=== PATIENT | female | born 1950 | race African-American/Black ===

== ENCOUNTER 2024-10-06 12:26 | Emergency (ER) | payer MEDICARE, OTHER ==
[~2024-10-06] VITALS: Ht 160 cm; Wt 60.4 kg
--- NOTE | 2024-10-06 13:20 | DVH ---
Procedure: US PELVIC Study Date and Requested Time: 10/06/2024 12:54 PM Study Description: US PELVIC History: vag bleed Comparison: None Technique: Multiple high resolution alonso-scale images obtained of the pelvic structures are obtained for evaluation with color doppler as needed. Findings: The uterus and ovaries are surgically absent. No masses or cysts are visualized. Limited evaluation of the urinary bladder due to inadequate distention with no gross abnormalities no josey. Urinary bladder volume of 62 cc. Impression: The uterus and ovaries are surgically absent. No abnormalities are noted within the pelvis. Limited evaluation of the urinary bladder due to inadequate distention with no gross abnormalities no josey. Urinary bladder volume of 62 cc.
[2024-10-06 13:37] LABS: Urine Bacteria FEW /hpf (None Seen); Urine Blood TRACE /uL (Negative); Urine Clarity Clear (Clear); Urine Color Light-Yellow (Yellow); Urine Protein, UAD 1+ (Negative); Urine Specific Gravity 1.031 (1.001-1.035); Urine Squamous Epithelial Cell FEW /hpf (<5); Urine Urobilinogen Normal (Negative); Urine WBC 1 /HPF (0-5); Urine pH 5.5 (5.0-9.0)
[2024-10-06 13:48] LABS: Basophils # (auto) 0 10 ^3/uL (0-0.2); Basophils % (auto) 0.3 % (0.0-2.0); Eosinophils # (auto) 0.1 10 ^3/uL (0-0.8); Eosinophils % (auto) 0.7 % (0.0-7.0); Monocytes # (auto) 0.3 10 ^3/uL (0-1.3); Neutrophils # (auto) 5.8 10 ^3/uL (1.6-8.6)
[2024-10-06 13:51] LABS: Hematocrit 40.7 % (36.0-46.0); Hemoglobin 13.3 g/dL (12.2-16.2); Lymphocytes # (auto) 1.6 10 ^3/uL (0.4-5.4); Lymphocytes % (auto) 20.2 % (10.0-50.0); Mean Corpuscular Hemoglobin 26.3 pg (28.0-32.0); Mean Corpuscular Hgb Conc. 32.6 g/dL (32.0-36.0); Mean Corpuscular Volume 80.7 fL (80.0-100.0); Monocytes % (auto) 4.3 % (0.0-12.0); Neutrophils % (auto) 74.5 % (37.0-80.0); Nucleated Red Blood Cells % 0.1 %; Platelet Count (auto) 355 10^3/uL (140-450); Red Blood Cells 5.05 10^6/uL (4.0-5.20); Red Cell Distribution Width 15.3 % (11.8-14.3); White Blood Cell 7.7 10^3/uL (4.4-10.8)
[2024-10-06 14:02] LABS: INR 0.97 (0.9-1.15); Partial Thromboplastin Time 25.7 SEC (24.5-34.5); Prothrombin Time 10.3 sec (9.3-11.8)
[2024-10-06 14:06] LABS: Alanine Aminotransferase 19 U/L (7-40); Alkaline Phosphatase 100 U/L (46-116); Anion Gap 6 (5-15); Aspartate Aminotransferase 14 U/L (13-40); BUN/Creatinine Ratio 14.4 (10.0-20.0); Blood Urea Nitrogen 16 mg/dL (9-23); Calcium 9.5 mg/dL (8.7-10.4); Carbon Dioxide 29 mmol/L (20-31); Chloride 105 mmol/L (98-107); Potassium 4.1 mmol/L (3.5-5.1); Sodium 140 mmol/L (136-145); Total Protein 7.2 g/dL (5.7-8.2)
[2024-10-06 14:07] LABS: Bilirubin, Total 0.4 mg/dL (0.2-1.0)
--- NOTE | 2024-10-06 14:10 | ED.PDOC ---
General HPI Comments 73-year-old female presents with a chief complaint of burning with urination and spotting when she wipes. Patient is unsure if she is bleeding from her vaginal or from her urethra. Patient is poor historian. Patient mentions that when she urinates that she experiences a burning sensation. Patient denies any abdomen pain, nausea, vomiting, diarrhea, blood blots, vaginal discharge, or dysuria. No other symptoms or modifying factors present at this time. PMHx: DM, HTN, Arthritis PSHx: Hysterectomy HPI: Poor Historian. REVIEW OF SYSTEMS: CONSTITUTIONAL: Denies acute: fever, diaphoresis, chills, generalized weakness. HEAD: Denies acute: headache, photophobia Eyes: Denies acute: Double vision, vision loss, eye pain, eye discharge. EARS: Denies acute: tinnitus, hearing loss, ear discharge, ear pain, THROAT: Denies acute: sore throat, swelling, difficulty swallowing , pain with swallowing, change in voice. NECK: Denies acute: neck pain, neck swelling, stiff neck. HEART: Denies acute : chest pain, palpitations, LUNGS: Denies acute: SOB, wheezing, cough, hemoptysis ABDOMEN: Denies acute: abdominal pain, Nausea, Vomiting, diarrhea, melena , hematemesis, hematochezia SKIN: Denies acute: rash, redness, lesions, itchiness. EXTREMITIES: Denies acute: calf pain, numbness, tingling, weakness, denies pain in extremity. Denies acute: Low back pain. Neuro: Denies acute: focal neurological deficit, motor or sensory focal neurological deficit, tremors, seizure like activity, confusion, dizziness, change in mental status, loss of bowel or bladder function, cauda equina like symptoms. : Denies acute: flank pain, increase in urinary frequency. PSYCH: Denies acute: hallucination, suicidal ideation, homicidal ideation. FEMALE: Denies acute: abnormal vaginal bleeding, foul odor, unusual discharge. PHYSICAL EXAM: General: no acute distress, awake and alert. Head: normocephalic, atraumatic. Neck: supple, trachea is midline, no swelling. Throat: Normal phonation. Eyes:, no erythema, no purulent discharge, no proptosis, no icterus. Heart: regular rate, regular rhythm, no significant murmur appreciated. Lungs: no apparent respiratory distress, Able to speak in full sentences. No wheezing, no rhonchi, no crackles. No stridors Clear to auscultation bilaterally. Abdomen: non tender to palpation, non distended, soft, no guarding, no rebound, + bowel sounds. Neuro: Awake, Alert, oriented to name, self, situation, follows commands GCS=15. Speech is normal. Skin: no petechia, no purpura, no cyanosis, non-pale, not jaundice. Lower extremities: --no - Pitting edema no deformity, no focal swelling, no calf TTP. Makes eye contact. moves all four extremities. Face: no apparent facial droop. Ambulating in the ED independently. 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 Was a procedure done?: No Differential Diagnosis Kidney stone (Female): N/A Urinary Problem (Female): Other (Hematuria:Ddx includes but not limited to: stones, coagulopathy, bladder/kidney cancer, SLE, infection, pylonephritis, prostatitis, cystitis, urethritis, renal infarct, Goodpasture syndrome, Wegners granulomatosis, Henoch-schnolin purpura, Hemolytic Uremic Syndrome HUS. Rhabdomyolysis. ) X-Ray, Labs, Meds, VS Vital Signs Date Time Temp Pulse Resp B/P (MAP) Pulse Ox O2 Delivery O2 Flow Rate FiO2 10/06/24 18:30 98.0 72 18 173/96 (121) 98 98.0 10/06/24 18:30 72 18 98 Room Air 10/06/24 12:47 97.7 72 16 176/82 (113) 99 97.7 Lab Test 10/06/24 13:24 10/06/24 13:00 Range/Units White Blood Count 7.7 4.4-10.8 10^3/uL Red Blood Count 5.05 4.0-5.20 10^6/uL Hemoglobin 13.3 12.2-16.2 g/dL Hematocrit 40.7 36.0-46.0 % Mean Corpuscular Volume 80.7 80.0-100.0 fL Mean Corpuscular Hemoglobin 26.3 L 28.0-32.0 pg Mean Corpuscular Hemoglobin Concent 32.6 32.0-36.0 g/dL Red Cell Distribution Width 15.3 H 11.8-14.3 % Platelet Count 355 140-450 10^3/uL Mean Platelet Volume 7.2 6.9-10.8 fL Neutrophils (%) (Auto) 74.5 37.0-80.0 % Lymphocytes (%) (Auto) 20.2 10.0-50.0 % Monocytes (%) (Auto) 4.3 0.0-12.0 % Eosinophils (%) (Auto) 0.7 0.0-7.0 % Basophils (%) (Auto) 0.3 0.0-2.0 % Neutrophils # (Auto) 5.8 1.6-8.6 10 ^3/uL Lymphocytes # (Auto) 1.6 0.4-5.4 10 ^3/uL Monocytes # (Auto) 0.3 0-1.3 10 ^3/uL Eosinophils # (Auto) 0.1 0-0.8 10 ^3/uL Basophils # (Auto) 0 0-0.2 10 ^3/uL Nucleated Red Blood Cells 0.1 % Prothrombin Time 10.3 9.3-11.8 sec Prothrombin Time INR 0.97 0.9-1.15 Activated Partial Thromboplast Time 25.7 24.5-34.5 SEC Sodium Level 140 136-145 mmol/L Potassium Level 4.1 3.5-5.1 mmol/L Chloride Level 105 98-107 mmol/L Carbon Dioxide Level 29 20-31 mmol/L Anion Gap 6 5-15 Blood Urea Nitrogen 16 9-23 mg/dL Creatinine 1.11 H 0.550-1.02 mg/dL Glomerular Filtration Rate Calc 52 >90 mL/min BUN/Creatinine Ratio 14.4 10.0-20.0 Serum Glucose 360 H 74-106 mg/dL Lactic Acid Level 0.9 0.4-2.0 mmol/L Calcium Level 9.5 8.7-10.4 mg/dL Total Bilirubin 0.4 0.2-1.0 mg/dL Aspartate Amino Transferase (AST) 14 13-40 U/L Alanine Aminotransferase (ALT) 19 7-40 U/L Alkaline Phosphatase 100 46-116 U/L Total Protein 7.2 5.7-8.2 g/dL Albumin 4.0 3.2-4.8 g/dL Urine Color Light-yellow Yellow Urine Clarity Clear Clear Urine pH 5.5 5.0-9.0 Urine Specific [place] 1.031 1.001-1.035 Urine Protein 1+ H Negative Urine Ketones Negative Negative Urine Blood Trace H Negative /uL Urine Nitrite Negative Negative Urine Bilirubin Negative Negative Urine Urobilinogen Normal Negative mg/dL Urine Leukocyte Esterase Negative Negative /uL Urine RBC 4 0 - 4 /hpf Urine Microscopic WBC 1 0-5 /HPF Urine Squamous Epithelial Cells Few <5 /hpf Urine Bacteria Few H None Seen /hpf Urine Glucose 4+ H Normal mg/dL PATIENT: FANTASMA GUERREROACCT: [id number]: [id number] : 1950 LOC: ER ROOM / BED: / AGE / SEX: 73 / F ADM STATUS: REG ER SERVICE 1249 ORDERING PHYSICIAN: RENETTA DAWN DO PROCEDURE(s): PELUS - PELVIC REASON: vag bleed ORDER NUMBER(s): [id number], ACCESSION NUMBER(s): [id number] Procedure: US PELVIC Study Date and Requested Time: 10/06/2024 12:54 PM Study Description: US PELVIC History: vag bleed Comparison: None Technique: Multiple high resolution alonso-scale images obtained of the pelvic structures are obtained for evaluation with color doppler as needed. Findings: The uterus and ovaries are surgically absent. No masses or cysts are visualized. Limited evaluation of the urinary bladder due to inadequate distention with no gross abnormalities noted. Urinary bladder volume of 62 cc. Impression: The uterus and ovaries are surgically absent. No abnormalities are noted within the pelvis. Limited evaluation of the urinary bladder due to inadequate distention with no gross abnormalities noted. Urinary bladder volume of 62 cc. ATED BY: DEE MILLS DO DICTATED DATE/TIME: 10/06/24 1318 SIGNED BY: DEE MILLS DO SIGNED DATE/TIME: 10/06/241317 PATIENT: FANTASMA GUERRERO ACCT: [id number] UNIT: [id number] : 1950 LOC: ER ROOM / BED: / AGE / SEX: 73 / F ADM STATUS: REG ER SERVICE 1538 ORDERING PHYSICIAN: RENETTA DAWN DO PROCEDURE(s): ABPL - CT AB PEL WO CON-NO ORAL OR IV REASON: hematuria ORDER NUMBER(s): [id number], ACCESSION NUMBER(s): [id number] Procedure: CT CT AB PEL WO CON-NO ORAL OR IV 10/06/2024 03:50 PM Indication: hematuria Comparison Study: None Technique: Axial images were obtained and reformatted in coronal and sagittal planes. All CT scans at this medical facility are performed using dose modulation techniques as appropriate to a performed exam including the following: Automated exposure control was utilized; adjustment of the MA and/or KV according to patient size; and use of iterative reconstruction technique. CT Dose: CTDI volume is 8.15 mGy. Dose-length product is 381.82 mGy*cm FINDINGS: Lower Chest: Unremarkable. Hepatobiliary: Unremarkable. Spleen: Unremarkable. Pancreas: Unremarkable. Adrenal Glands: Unremarkable. tract: The kidneys are normal in size bilaterally without hydronephrosis or nephrolithiasis. The urinary bladder is unremarkable. GI tract: The stomach is grossly normal in appearance. No evidence of small bowel obstruction. There is sigmoid diverticulosis without diverticulitis. Mild fecal retention noted. The appendix is normal. Lymphatics: No mesenteric, retroperitoneal or periportal lymphadenopathy. Vasculature: Aorta is normal in caliber. Scattered calcified plaques are noted. Pelvic Organs: The uterus is surgically absent. No adnexal lesion is identified. Bones/soft tissues: A 9 mm sclerotic focus seen L4 vertebral body that may represent a benign bone island or osteoblastic metastasis. Multilevel degenerative disc disease and posterior facet arthropathy of the lumbar spine noted. Other: None. IMPRESSION: 1. No CT evidence for acute intra-abdominal or intrapelvic process. Specifically, no hydronephrosis or urolithiasis. Consider further evaluation of hematuria CT urogram. 2. Moderate fecal retention.Sigmoid 3. Diverticulosis without diverticulitis. 4. A 9 mm sclerotic focus seen L4 vertebral body that may represent a benign bone island or osteoblastic metastasis. This can further evaluated whole-body bone scan if clinically warranted. ATED BY: PEYTON AGRAWAL MD DICTATED DATE/TIME: 10/06/24 163 SIGNED BY: PEYTON AGRAWAL MD SIGNED DATE/TIME: 10/06/24 1638 Time of 1ST Reevaluation: 14:31 Reevaluation 1ST: Unchanged Patient Education/Counseling: Diagnosis, Treatment Family Education/Counseling: No Family Present Comments Patient presented with the above HPI.---hematuria---workup was initiated. patient was found with the above mentioned diagnosis. the following medications were ordered: please refer to order lists of meds and tests obtained by myself Dr. Dawn. Patient ED course and VS have been stabilized. Patient has been reassessed in the ED and remained in a stable condition. Pertinent incidental findings were discussed with the patient and/or family. Patient/family voices understanding and is agreeable with plan. Patient has been observed in the ED adequate length of time to insure improvement/stability. Escalation of care considered: Consideration of escalation to observation or admission Patient was DISCHARGED home in a stable condition. All the reports of any imaging studies that were ordered by myself were reviewed by myself. Departure 1 Departure Time of Disposition: 15:36 Impression: Primary Impression: UTI (urinary tract infection) Additional Impression: Constipation Disposition: 01 HOME / SELF CARE / HOMELESS Condition: Stable Additional Instructions: Additional discharge instructions: You MUST follow-up with your primary care/family doctor in 1 to 2 days. If you are unable to see your primary care/family doctor, please return to our emergency room for re-assessment and re-evaluation in 1 to 2 days. Return to the emergency room here in our facility or to the nearest ER [facility] if your symptoms change or worsen. CONSULTATIONS: you MUST Follow-up for consultation as soon as possible with: -urology and OB Gyne doctor in 1-2 days. Please call for appointment. You MUST call the consultants office yourself to make an appointment. You may need to arrange that through your insurance and/or your primary/family doctor. If you are unable to see the inbound sales consultant in 1 to 2 days, you must return to our emergency room (or any other ER of your choice) for re-assessment and re- evaluation. Increase fiber intake. Adequate fluid hydration. Below is a copy of your radiological report for follow up: [place] [address] Ph: [phone] DIAGNOSTIC IMAGING Diagnostic Imaging Report : [id number] Signed PATIENT: FANTASMA GUERRERO ACCT: [id number] UNIT: [id number] : 1950 LOC: ER ROOM / BED: / AGE / SEX: 73 / F ADM STATUS: REG ER SERVICE 1249 ORDERING PHYSICIAN: RENETTA DAWN DO PROCEDURE(s): PELUS - PELVIC REASON: vag bleed ORDER NUMBER(s): [id number], ACCESSION NUMBER(s): [id number] Procedure: US PELVIC Study Date and Requested Time: 10/06/2024 12:54 PM Study Description: US PELVIC History: vag bleed Comparison: None Technique: Multiple high resolution alonso-scale images obtained of the pelvic structures are obtained for evaluation with color doppler as needed. Findings: The uterus and ovaries are surgically absent. No masses or cysts are visualized. Limited evaluation of the urinary bladder due to inadequate distention with no gross abnormalities noted. Urinary bladder volume of 62 cc. Impression: The uterus and ovaries are surgically absent. No abnormalities are noted within the pelvis. Limited evaluation of the urinary bladder due to inadequate distention with no gross abnormalities noted. Urinary bladder volume of 62 cc. ATED BY: DEE MILLS DO DICTATED DATE/TIME: 10/06/241317 SIGNED BY: DEE MILLS Allen CONTRERAS SIGNED DATE/TIME: 10/06/241317 CC: [address] [address] Ph: [phone] DIAGNOSTIC IMAGING Diagnostic Imaging Report : [id number] Signed PATIENT: FANTASMA GUERRERO ACCT: [id number] UNIT: [id number] : 1950 LOC: ER ROOM / BED: / AGE / SEX: 73 / F ADM STATUS: REG ER SERVICE 1538 ORDERING PHYSICIAN: RENETTA DAWN DO PROCEDURE(s): ABPL - CT AB PEL WO CON-NO ORAL OR IV REASON: hematuria ORDER NUMBER(s): [id number], ACCESSION NUMBER(s): [id number] Procedure: CT CT AB PEL WO CON-NO ORAL OR IV 10/06/2024 03:50 PM Indication: hematuria Comparison Study: None Technique: Axial images were obtained and reformatted in coronal and sagittal planes. All CT scans at this medical facility are performed using dose modulation techniques as appropriate to a performed exam including the following: Automated exposure control was utilized; adjustment of the MA and/or KV according to patient size; and use of iterative reconstruction technique. CT Dose: CTDI volume is 8.15 mGy. Dose-length product is 381.82 mGy*cm FINDINGS: Lower Chest: Unremarkable. Hepatobiliary: Unremarkable. Spleen: Unremarkable. Pancreas: Unremarkable. Adrenal Glands: Unremarkable. tract: The kidneys are normal in size bilaterally without hydronephrosis or nephrolithiasis. The urinary bladder is unremarkable. GI tract: The stomach is grossly normal in appearance. No evidence of small bowel obstruction. There is sigmoid diverticulosis without diverticulitis. Mild fecal retention noted. The appendix is normal. Lymphatics: No mesenteric, retroperitoneal or periportal lymphadenopathy. Vasculature: Aorta is normal in caliber. Scattered calcified plaques are noted. Pelvic Organs: The uterus is surgically absent. No adnexal lesion is identified. Bones/soft tissues: A 9 mm sclerotic focus seen L4 vertebral body that may represent a benign bone island or osteoblastic metastasis. Multilevel degenerative disc disease and posterior facet arthropathy of the lumbar spine noted. Other: None. IMPRESSION: 1. No CT evidence for acute intra-abdominal or intrapelvic process. Specifically, no hydronephrosis or urolithiasis. Consider further evaluation of hematuria CT urogram. 2. Moderate fecal retention.Sigmoid 3. Diverticulosis without diverticulitis. 4. A 9 mm sclerotic focus seen L4 vertebral body that may represent a benign bone island or osteoblastic metastasis. This can further evaluated whole-body b one scan if clinically warranted. ATED BY: PEYTON AGRAWAL MD DICTATED DATE/TIME: 10/06/24 1638 SIGNED BY: PEYTON AGRAWAL MD SIGNED DATE/TIME: 10/06/24 1638 CC: e-Prescriptions Nitrofurantoin Monohydrate Mac (Macrobid) 100 Mg Cap 100 MG PO BID for 7 Days, #14 TAB Prov: RENETTA DAWN DO 10/06/24 Discharged With: Self Critical Care Note Critical Care Time?: No I personally scribed for RENETTA DAWN DO ([email or web address]) on 10/06/24 at 14:10. Electronically submitted by Mauricio Chris ([email or web address]). I personally scribed for RENETTA DAWN DO ([email or web address]) on 10/06/24 at 14:12. Electronically submitted by Mauricio Chris ([email or web address]). I personally scribed for RENETTA DAWN DO ([email or web address]) on 10/06/24 at 16:53. Electronically submitted by Mauricio Chris ([email or web address]). RENETTA DAWN DO Oct 06, 2024 14:10
[2024-10-06 14:12] LABS: Glucose 360 mg/dL (74-106)
[2024-10-06] MEDS ORDERED: NITR-87 PO (15:38)
--- NOTE | 2024-10-06 16:41 | DVH ---
Procedure: CT CT AB PEL WO CON-NO ORAL OR IV 10/06/2024 03:50 PM Indication: hematuria Comparison Study: None Technique: Axial images were obtained and reformatted in coronal and sagittal planes. All CT scans at this medical facility are performed using dose modulation techniques as appropriate to a performed e xam including the following: Automated exposure control was utilized; adjustment of the MA and/or KV according to patient size; and use of iterative reconstruction technique. CT Dose: CTDI volume is 8.1 5 mGy. Dose-length product is 381.82 mGy*cm FINDINGS: Lower Chest: Unremarkable. Hepatobiliary: Unremarkable. Spleen: Unremarkable. Pancreas: Unremarkable. Adrenal Glands: Unremarkable. tract: The kidneys are normal in size bilaterally without hydronephrosis or nephrolithiasis. The u rinary bladder is unremarkable. GI tract: The stomach is grossly normal in appearance. No evidence of small bowel obstruction. There is sigmoid diverticulosis without diverticulitis. Mild fecal retention noted. The appendix is normal. Lymphatics: No mesenteric, retroperitoneal or periportal lymphadenopathy. Vasculature: Aorta is normal in caliber. Scattered calcified plaques are noted. Pelvic Organs: The uterus is surgically absent. No adnexal lesion is identified. Bones/soft tissues: A 9 mm sclerotic focus seen L4 vertebral body that may represent a benign bone is land or osteoblastic metastasis. Multilevel degenerative disc disease and posterior facet arthropathy of the lumbar spine noted. Other: None. IMPRESSION: 1. No CT evidence for acute intra-abdominal or intrapelvic process. Specifically, no hydronephrosis o r urolithiasis. Consider further evaluation of hematuria CT urogram. 2. Moderate fecal retention.Sigmoid 3. Diverticulosis without diverticulitis. 4. A 9 mm sclerotic focus seen L4 vertebral body that may represent a benign bone island or osteoblas tic metastasis. This can further evaluated whole-body bone scan if clinically warranted.
[2024-10-06 18:30] VITALS: BP 173/96; PULSE 72; RESP 18; TEMP 98; O2SAT 98
== END 2024-10-06 18:35 | disposition home or self-care (01) ==
LOC: ER 12:26
DX: N39.0 Urinary tract infection, site not specified (principal); K59.00 Constipation, unspecified; M19.90 Unspecified osteoarthritis, unspecified site; I10 Essential (primary) hypertension; E11.9 Type 2 diabetes mellitus without complications; Z90.710 Acquired absence of both cervix and uterus; Z88.0 Allergy status to penicillin; Z88.6 Allergy status to analgesic agent; Z79.899 Other long term (current) drug therapy
CPT/HCPCS: 36415; 74176; 76856; 80053; 81001; 83605; 85025; 85610; 85730

== ENCOUNTER 2024-10-20 17:11 | Emergency (ER) | payer MEDICARE, OTHER ==
[~2024-10-20] VITALS: Ht 170.2 cm; Wt 73.0 kg
[~2024-10-20 17:11] MED LIST: NITR-87 PO
--- NOTE | 2024-10-20 17:28 | ED.PDOC ---
History of Present Illness HPI Comments 73F BIBA w/ prior Hx of DM which may be associated to the c/c of N/V. EMS report that the pt has been having N/V w/ constipation for the past 2 hours w/ pinkish emesis. EMS gave the pt 4mg of Zofran en rout to the ED. Pt notes that she did take her insulin shot earlier today. BS of 345 on scene. Denies chills, fever, /D, SOB, CP or no other associated symptoms, modifiers, recent injuries or sick contacts at this time. Patient states the medication was effective in relieving her nausea and vomiting. Chief Complaint: Nausea/Vomiting Time Seen by MD: 17:10 Primary Care Provider: NONE Reviewed Notes: Nurses Notes, Medical Technologist Prn Notes, Medications, Allergies Allergies: Coded Allergies: Aspirin (Verified Allergy, Unknown, 10/06/24) Penicillins (Verified Allergy, Unknown, 10/06/24) Home Meds Active Scripts Nitrofurantoin Monohydrate Mac (Macrobid) 100 Mg Cap, 100 MG PO BID for 7 Days, #14 TAB Prov:MARC DAWNKaren Carter DO 10/06/24 Information Source: Patient, Emergency Med Personnel Mode of Arrival: EMS Severity: Moderate Timing: Hours Duration: Since onset, Hours Prehospital treatment: None Past Medical History PAST MEDICAL HISTORY: DM Surgical History: Denies all surgeries 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 Family History Family History: Reviewed,noncontributory to illness, Unknown Social History Smoker: Non-Smoker Alcohol: Denies ETOH Use Drugs: Denies Drug Use Lives In: Home Constitutional: denies: chills, diaphoresis, fatigue, fever, malaise, sweats, weakness, others EENTM: denies: blurred vision, double vision, ear bleeding, ear discharge, ear drainage, ear pain, ear ringing, eye pain, eye redness, hearing loss, mouth pain, mouth swelling, nasal discharge, nose bleeding, nose congestion, nose pain, photophobia, tearing, throat pain, throat swelling, voice changes, others Respiratory: denies: cough, hemoptysis, orthopnea, SOB at rest, shortness of breath, SOB with excertion, stridor, wheezing, others Cardiovascular: denies: chest pain, dizzy spells, diaphoresis, Dyspnea on exertion, edema, irregular heart beat, left arm pain, lightheadedness, palpitations, PND, syncope, others Gastrointestinal: reports: nausea, vomiting; denies: abdomen distended, abdominal pain, blood streaked bowels, constipated, diarrhea, dysphagia, difficulty swallowing, hematemesis, melena, poor appetite, poor fluid intake, rectal bleeding, rectal pain, others Genitourinary: denies: abnormal vagina bleeding, burning, dyspareunia, dysuria, flank pain, frequency, hematuria, incontinence, pain, , vagina discharge, urgency, others Neurological: denies: dizziness, fainting, headache, left sided numbness, left sided weakness, numbness, paresthesia, pre-existing deficit, right sided numbness, right sided weakness, seizure, speech problems, tingling, tremors, weakness, others Musculoskeletal: denies: back pain, gout, joint pain, joint swelling, muscle pain, muscle stiffness, neck pain, others Integumetry: denies: bruises, change in color, change in hair/nails, dryness, laceration, lesions, lumps, rash, wounds, others Allergic/Immunocompromised: denies: Difficulty Healing, Frequent Infections, Hives, Itching, others Hematologic/Lymphatic: denies: anemia, blood clots, easy bleeding, easy bruising, swollen glands, others Endocrine: denies: excessive hunger, excessive sweating, excessive thirst, excessive urination, flushing, intolerance to cold, intolerance to heat, unexplained weight gain, unexplained weight loss, others Psychiatric: denies: anxiety, bipolar disorder, depression, hopeless, panic disorder, schizophrenia, sleepless, suicidal, others All Other Systems: Reviewed and Negative Physical Exam General Appearance: Mild Distress (Patient has a mild distress due to anxiety related to her event rather than any definitive physiologic concerns.), Normal HEENT: Normal ENT Inspection, Pharynx Normal, TMs Normal Neck: Full Range of Motion, Non-Tender, Normal, Normal Inspection Respiratory: Chest Non-Tender, Lungs Clear, No Accessory Muscle Use, No Resp iratory Distress, Normal Breath Sounds Cardiovascular: No Edema, No JVD, No Murmur, No Gallop, Normal Peripheral Pulses, Regular Rate/Rhythm Breast Exam: Deferred Gastrointestinal: No Organomegaly, Non Tender, No Pulsatile Mass, Normal Bowel Sounds, Soft Genitalia: Deferred Pelvic: Deferred Rectal: Deferred Extremities: No calf tenderness, Normal capillary refill, Normal inspection, Normal range of motion, Non-tender, No pedal edema Musculoskeletal : Apperance: Normal Neurologic: Alert, No Motor Deficits, Normal Affect, Normal Mood, No Sensory Deficits Cerebellar Function: Normal Reflexes: Normal Skin: Dry, Normal Color, Warm Lymphatic: No Adenopathy Was a procedure done? Was a procedure done?: No Differential Dx Considerations may include: Viral gastroenteritis, electrolyte abnormality, sepsis, hyperglycemia X-Ray, Labs, Meds, VS Vital Signs Date Time Temp Pulse Resp B/P (MAP) Pulse Ox O2 Delivery O2 Flow Rate FiO2 10/20/24 21:17 67 15 96 Room Air* 0 21 10/20/24 21:03 133/62 (85) 10/20/24 21:00 133/62 10/20/24 19:30 98.3 69 13 174/69 (104) 97 98.3 10/20/24 19:08 174/69 10/20/24 18:22 189/92 10/20/24 17:33 98.0 75 13 170/54 (92) 98 98.0 10/20/24 17:33 77 14 95 Room Air* 0 21 10/20/24 17:17 98.2 83 18 149/69 (95) 100 98.2 Lab Test 10/20/24 17:40 10/20/24 17:35 Range/Units Urine Color Colorless Yellow Urine Clarity Clear Clear Urine pH 7.0 5.0-9.0 Urine Specific [place] 1.011 1.001-1.035 Urine Protein 1+ H Negative Urine Ketones Negative Negative Urine Blood Negative Negative /uL Urine Nitrite Negative Negative Urine Bilirubin Negative Negative Urine Urobilinogen Normal Negative mg/dL Urine Leukocyte Esterase Trace Negative /uL Urine RBC 2 0 - 4 /hpf Urine Microscopic WBC 5 0-5 /HPF Urine Squamous Epithelial Cells Few <5 /hpf Urine Bacteria None seen None Seen /hpf Urine Glucose 4+ H Normal mg/dL White Blood Count 14.4 H 4.4-10.8 10^3/uL Red Blood Count 4.74 4.0-5.20 10^6/uL Hemoglobin 12.7 12.2-16.2 g/dL Hematocrit 38.0 36.0-46.0 % Mean Corpuscular Volume 80.3 80.0-100.0 fL Mean Corpuscular Hemoglobin 26.8 L 28.0-32.0 pg Mean Corpuscular Hemoglobin Concent 33.4 32.0-36.0 g/dL Red Cell Distribution Width 15.4 H 11.8-14.3 % Platelet Count 354 140-450 10^3/uL Mean Platelet Volume 7.0 6.9-10.8 fL Neutrophils (%) (Auto) 87.4 H 37.0-80.0 % Lymphocytes (%) (Auto) 8.0 L 10.0-50.0 % Monocytes (%) (Auto) 4.3 0.0-12.0 % Eosinophils (%) (Auto) 0.1 0.0-7.0 % Basophils (%) (Auto) 0.2 0.0-2.0 % Neutrophils # (Auto) 12.6 H 1.6-8.6 10 ^3/uL Lymphocytes # (Auto) 1.2 0.4-5.4 10 ^3/uL Monocytes # (Auto) 0.6 0-1.3 10 ^3/uL Eosinophils # (Auto) 0 0-0.8 10 ^3/uL Basophils # (Auto) 0 0-0.2 10 ^3/uL Nucleated Red Blood Cells 0.0 % Sodium Level 139 136-145 mmol/L Potassium Level 4.4 3.5-5.1 mmol/L Chloride Level 104 98-107 mmol/L Carbon Dioxide Level 30 20-31 mmol/L Anion Gap 5 5-15 Blood Urea Nitrogen 18 9-23 mg/dL Creatinine 1.07 H 0.550-1.02 mg/dL Glomerular Filtration Rate Calc 55 >90 mL/min BUN/Creatinine Ratio 16.8 10.0-20.0 Serum Glucose 343 H 74-106 mg/dL Calcium Level 9.2 8.7-10.4 mg/dL Troponin I High Sensitivity < 3 L </=34 ng/L Current Medications Medications (Trade) Dose Ordered Sig/Guera Route Start Time Stop Time Status Last Admin Clonidine HCl (Catapres Tablet) 0.2 mg ONCE ONCE PO 10/20/24 18:30 10/20/24 18:31 DC 10/20/24 18:22 X-Ray, Labs, Meds, VS Comment All studies performed the ED were evaluated by me personally. Serum studies were relatively unremarkable for any systemic process other than a hyperglycemic state. Patient's blood pressure returned to an acceptable zone at time of discharge. Spent extensive time discussing the patient's complaints with her as well as management of her blood sugar concerns. Advised patient follow up with the primary care provider for discussions related to blood sugar management including possibly being referred for diabetic classes to aid her in properly medicating herself. Additionally, advised patient talk to primary care provider about blood pressure management. Patient will be sent home with some emergent medication to be used as needed. Time of 1ST Reevaluation: 21:27 Reevaluation 1ST: Improved Consultation: PCP Patient Education/Counseling: Diagnosis, Treatment, Prognosis Family Education/Counseling: Diagnosis, Treatment, No Family Present Departure 1 Departure Time of Disposition: 21:28 Impression: Primary Impression: Nausea and vomiting due to hyperglycemia Additional Impressions: Hyperglycemia due to diabetes mellitus Hypertension Disposition: HOME / SELF CARE / HOMELESS Condition: Stable Additional Instructions: Advised patient follow up with primary care provider for discussions related to improvement of blood sugar and blood pressure concerns. Patient will be sent home with some emergent medication to be utilized as needed. Patient needs to acquire more information related to proper management of her comorbidities. e-Prescriptions Ondansetron Odt 4MG Tab (ZOFRAN PO) 4 Mg Tb 4 MG PO Q6HP PRN, #15 TAB ODT TAB-DISSOLVE IN MOUTH, THEN SWALLOW Prov: ELIZABETH BROWNE PAC 10/20/24 Clonidine Hydrochloride (Clonidine Hcl) 0.2 Mg Tab 1 TAB PO BID, #20 TAB 0 Refills To be used if systolic blood pressures above 160 or diastolic pressures above 90. Prov: ELIZABETH BROWNE PAC 10/20/24 Discharged With: Self, Spouse Critical Care Note Critical Care Time?: No Stability Stability form required: No Heart Score Heart Score: Heart Score Response (Comments) Value History N/A 0 EKG N/A 0 Age N/A 0 Risk Factors N/A 0 Troponin N/A 0 Total 0 I personally scribed for ELIZABETH BROWNE PAC ([email or web address]) on 10/20/24 at 17:28. Electronically submitted by Waldemar Horton ([email or web address]). ELIZABETH BROWNE PAC Oct 20, 2024 17:28
[2024-10-20 17:33] VITALS: PULSE 77; RESP 14; O2SAT 95
[2024-10-20 17:48] LABS: Basophils # (auto) 0 10 ^3/uL (0-0.2); Basophils % (auto) 0.2 % (0.0-2.0); Eosinophils # (auto) 0 10 ^3/uL (0-0.8); Eosinophils % (auto) 0.1 % (0.0-7.0); Hemoglobin 12.7 g/dL (12.2-16.2); Lymphocytes # (auto) 1.2 10 ^3/uL (0.4-5.4); Mean Corpuscular Hemoglobin 26.8 pg (28.0-32.0); Mean Corpuscular Hgb Conc. 33.4 g/dL (32.0-36.0); Mean Corpuscular Volume 80.3 fL (80.0-100.0); Monocytes # (auto) 0.6 10 ^3/uL (0-1.3); Monocytes % (auto) 4.3 % (0.0-12.0); Neutrophils # (auto) 12.6 10 ^3/uL (1.6-8.6); Neutrophils % (auto) 87.4 % (37.0-80.0); Platelet Count (auto) 354 10^3/uL (140-450); Red Blood Cells 4.74 10^6/uL (4.0-5.20); Red Cell Distribution Width 15.4 % (11.8-14.3); White Blood Cell 14.4 10^3/uL (4.4-10.8)
[2024-10-20 17:58] LABS: Chloride 104 mmol/L (98-107); Potassium 4.4 mmol/L (3.5-5.1); Sodium 139 mmol/L (136-145)
[2024-10-20 17:59] LABS: Anion Gap 5 (5-15); Calcium 9.2 mg/dL (8.7-10.4); Carbon Dioxide 30 mmol/L (20-31)
[2024-10-20 18:04] LABS: BUN/Creatinine Ratio 16.8 (10.0-20.0); Blood Urea Nitrogen 18 mg/dL (9-23)
[2024-10-20 18:05] LABS: Glucose 343 mg/dL (74-106)
[2024-10-20] MEDS: cloNIDine HCL 0.1 MG TAB PO ONE (18:22)
--- NOTE | 2024-10-20 18:38 | DVH ---
Exam: XY KUB ABDOMEN SINGLE VIEW Indication: Rule out SBO Comparison: CT abdomen/ pelvis 10/06/2024 Technique: Single frontal radiographic view of the abdomen. Findings: Nonobstructive bowel gas pattern. Small amount of stool density is seen. There is no definite evidence for pneumoperitoneum. No abnormal calcifications noted. Metallic butts chain overlying the right lateral chest. Lung bases are grossly clear. Mild degenerative disc changes in the lower lumbar spine. The previously seen sclerotic density in t he L4 vertebral body is not well appreciated on radiograph. Impression: Nonobstructive bowel gas pattern.
[2024-10-20 20:50] LABS: Urine Bacteria None Seen /hpf (None Seen)
[2024-10-20] MEDS: LISINOPRIL 5 MG TAB PO ONE (21:00)
[2024-10-20 21:02] LABS: Urine Blood Negative /uL (Negative); Urine Clarity Clear (Clear); Urine Color Colorless (Yellow); Urine Protein, UAD 1+ (Negative); Urine Specific Gravity 1.011 (1.001-1.035); Urine Squamous Epithelial Cell FEW /hpf (<5); Urine Urobilinogen Normal (Negative); Urine WBC 5 /HPF (0-5)
[2024-10-20 21:17] VITALS: PULSE 67; RESP 15; O2SAT 96
[2024-10-20] MEDS ORDERED: CLON0.2T PO (21:33)
[2024-10-20] MEDS ORDERED: ZOFR4T PO (21:33)
[2024-10-20 22:00] VITALS: BP 124/59; PULSE 62; RESP 12; TEMP 98; O2SAT 99
== END 2024-10-20 22:01 | disposition home or self-care (01) ==
LOC: EDUNIT# 17:11 → EDBD 17:11 → ER 17:15
DX: R11.2 Nausea with vomiting, unspecified (principal); E11.65 Type 2 diabetes mellitus with hyperglycemia; I10 Essential (primary) hypertension; Z88.0 Allergy status to penicillin; Z79.82 Long term (current) use of aspirin
CPT/HCPCS: 36415; 74018; 80048; 81001; 82947; 84484; 85025

== ENCOUNTER → 2024-10-22 | Outpatient (CLI) | payer MEDICARE, OTHER ==
[~2024-10-22] MED LIST changes: +CLON0.2T PO; +ZOFR4T PO
[2024-10-22 09:50] LABS: Alanine Aminotransferase 21 U/L (7-40); Alkaline Phosphatase 81 U/L (46-116); Anion Gap 7 (5-15); BUN/Creatinine Ratio 17.6 (10.0-20.0); Blood Urea Nitrogen 19 mg/dL (9-23); Calcium 9.7 mg/dL (8.7-10.4); Carbon Dioxide 29 mmol/L (20-31); Chloride 105 mmol/L (98-107); Potassium 4.4 mmol/L (3.5-5.1); Sodium 141 mmol/L (136-145); Triglycerides 107 mg/dL (< 150)
[2024-10-22 09:51] LABS: Albumin 3.8 g/dL (3.2-4.8); Total Protein 6.9 g/dL (5.7-8.2)
[2024-10-22 09:52] LABS: Aspartate Aminotransferase 22 U/L (13-40); Bilirubin, Total 0.4 mg/dL (0.2-1.0); HDL Cholesterol 56 mg/dL (40-59)
[2024-10-22 09:58] LABS: Cholesterol 216 mg/dL (< 200); Glucose 213 mg/dL (74-106); LDL Cholesterol 130 mg/dL (< 100)
== END | disposition home or self-care (01) ==
LOC: LAB 09:02
PROVIDERS: ATTEND Nurse Practitioner
DX: E11.9 Type 2 diabetes mellitus without complications (principal); E78.5 Hyperlipidemia, unspecified
CPT/HCPCS: 36415; 80053; 80061; 83036